=== PATIENT | male | born 1955 | race Caucasian/White ===

== ENCOUNTER 2017-04-18 10:39 | Emergency (ER) | payer OTHER ==
[~2017-04-18] VITALS: Ht 157.5 cm; Wt 77.1 kg
--- NOTE | 2017-04-18 10:40 | NUR ---
BIB SON C/O NAUSEA AND VOMITING X 1 THIS AM. PATIENT IS AAO4. APPEARS IN NO APPARENT DISTRESS. RESPIRARTION EVEN AND UNLABORED. VSS
[2017-04-18 11:11] LABS: BASOPHILS % (AUTO) 0.4 % (0.0-2.0); EOSINOPHILS # (AUTO) 0.1 /CMM (0.0-0.7); EOSINOPHILS % (AUTO) 0.7 % (0.0-6.0); HEMATOCRIT 45 % (39-51); LYMPHOCYTES # (AUTO) 1.3 /CMM (0.8-4.8); MEAN CORPUSCULAR HEMOGLOBIN 31 PG (26.0-33.0); MEAN CORPUSCULAR HGB CONC 33 g/dl (31.0-36.0); MEAN CORPUSCULAR VOLUME 92 fL (80-96); MONOCYTES # (AUTO) 0.4 /CMM (0.1-1.30); MONOCYTES % (AUTO) 5.1 % (2.0-12.0); NEUTROPHILS # (AUTO) 6.1 /CMM (1.8-8.9); NEUTROPHILS % (AUTO) 77.8 % (43.0-81.0); PLATELET COUNT (AUTO) 201 /CMM (150-450); RDW COEFFICIENT OF VARIATION 12.3 (11.5-15.0); RED BLOOD CELL COUNT(AUTO) 4.92 MIL/uL (4.5-6.0); WHITE BLOOD COUNT (AUTO) 7.9 K/uL (4.3-11.0)
[2017-04-18 11:20] LABS: CARBON DIOXIDE 28 mmol/L (21-32); CHLORIDE 107 mmol/L (98-107); CREATININE 0.9 mg/dL (0.6-1.3); GLUCOSE 126 mg/dL (74-106); POTASSIUM 4.1 mmol/L (3.5-5.1); SODIUM SERUM 142 mmol/L (136-145); UREA NITROGEN, BLOOD 13 mg/dL (7-18)
[2017-04-18 11:24] LABS: INR 1.01 (0.87-1.13); PROTHROMBIN TIME 10.5 SECS (9.5-12.7)
[2017-04-18 11:29] LABS: TROPONIN I < 0.017 ng/mL (0.00-0.056)
[2017-04-18 11:32] LABS: CALCIUM, SERUM 8.3 mg/dL (8.5-10.1)
[2017-04-18] MEDS ORDERED: ONDANSETRON HCL/PF 4 MG/2 ML VIAL ONE (11:50)
[2017-04-18] MEDS ORDERED: IV NS 0.9% 1,000 ML BAG IV ONE (12:00)
[2017-04-18] MEDS ORDERED: ONDANSETRON HCL/PF 4 MG/2 ML VIAL IVP ONE (12:00)
[2017-04-18 13:09] VITALS: BP 150/80
--- NOTE | 2017-04-18 13:10 | NUR ---
Patient discharged to home in stable condition. Written and verbal after care instructions given. Patient verbalizes understanding of instruction.
== END 2017-04-18 13:12 | disposition home or self-care (01) ==
LOC: ER 10:43
DX: A08.4 Viral intestinal infection, unspecified (principal); R79.1 Abnormal coagulation profile; Z88.8 Allergy status to other drugs, medicaments and biological substances; Z98.890 Other specified postprocedural states
CPT/HCPCS: 36415; 80048; 84484; 85025; 85730; 93005; 96361; 96374; 99285; A4606; J2405; J7030; Z7610

== ENCOUNTER 2021-11-30 01:14 | Emergency (ER) | payer OTHER ==
[~2021-11-30] VITALS: Ht 157.5 cm; Wt 90.7 kg
--- NOTE | 2021-11-30 01:25 | NUR ---
CHRISTIAN C/O "FISH BONE STUCK IN THROAT". PATIENT ALERT AND ORIENTED X3. AMBULATORY WITH NON LABORED BREATHING IN BED 02.
--- NOTE | 2021-11-30 01:29 | NUR ---
XRAY AT BEDSIDE
[2021-11-30] MEDS ORDERED: LIDOCAINE VISCOUS 2% UD 15 ML UDC MM ONE (01:30)
[2021-11-30] MEDS ORDERED: LIDOCAINE VISCOUS 2% UD 15 ML UDC ONE (01:41)
--- NOTE | 2021-11-30 02:38 | NUR ---
Patient discharged to home in stable condition. Written and verbal after care instructions given. Patient verbalizes understanding of instruction.
[2021-11-30 02:39] VITALS: BP 166/90
== END 2021-11-30 02:39 | disposition home or self-care (01) ==
LOC: ER 01:21
DX: R44.8 Other symptoms and signs involving general sensations and perceptions (principal); Z87.19 Personal history of other diseases of the digestive system; Z88.3 Allergy status to other anti-infective agents; Z60.2 Problems related to living alone
CPT/HCPCS: 70360-TC